=== PATIENT | female | born 1955 | race African-American/Black ===

== ENCOUNTER 2023-01-19 10:09 | Inpatient (IN) | payer OTHER ==
[2023-01-19 11:43] VITALS: BMI 16.7
[2023-01-19] MEDS ORDERED: BUPRENORPHINE HCL 150 MCG, BUPRENORPHINE HCL 75 MCG BC PRN (12:27)
[2023-01-19] MEDS ORDERED: cloNIDine HCL 0.1 MG TABLET PO ONE (12:27)
[2023-01-19] MEDS ORDERED: BUPRENORPHINE HCL 150 MCG, BUPRENORPHINE HCL 75 MCG BC ONE (12:27)
[2023-01-19] MEDS ORDERED: BUPRENORPHINE HCL 150 MCG FILM BC ONE (12:33)
[2023-01-19] MEDS ORDERED: cloNIDine HCL 0.1 MG TABLET ONE (12:33)
[2023-01-19] MEDS ORDERED: BUPRENORPHINE HCL 75 MCG FILM BC ONE (12:33)
[2023-01-19] MEDS ORDERED: ONDANSETRON *ODT* 4 MG TABLET ONE (12:39)
[2023-01-19] MEDS ORDERED: ONDANSETRON *ODT* 4 MG TABLET SL PRN (14:31)
[2023-01-19] MEDS ORDERED: guaiFENesin 600 MG TABLET.ER (FP) PO PRN (14:31)
[2023-01-19] MEDS ORDERED: DICYCLOMINE HCL 10 MG CAPSULE PO PRN (14:31)
[2023-01-19] MEDS ORDERED: NALOXONE HCL (KLOXXADO) 8 MG SPRAY NS PRN (14:31)
[2023-01-19] MEDS ORDERED: POLYETHYLENE GLYCOL (HEALTHYLAX) 3350 17 GM PACKET PO PRN (14:31)
[2023-01-19] MEDS ORDERED: hydrOXYzine PAMOATE 25 MG CAPSULE (FP) PO PRN (14:31)
[2023-01-19] MEDS ORDERED: BENZONATATE 200 MG CAPSULE PO PRN (14:31)
[2023-01-19] MEDS ORDERED: MAGNESIUM HYDROX 2400MG/30ML ORAL SUSPENSION 30 ML CUP PO PRN (14:31)
[2023-01-19] MEDS ORDERED: NALOXONE HCL 0.4 MG/ML VIAL IM PRN (14:31)
[2023-01-19] MEDS ORDERED: BENZOCAINE/MENTHOL (CHLORASEPTIC ) LOZENGE MM PRN (14:31)
[2023-01-19] MEDS ORDERED: LOPERAMIDE HCL 2 MG CAPSULE PO PRN (14:31)
[2023-01-19] MEDS ORDERED: MAG HYDROX/AL HYDROX/SIMETH 30 ML UNIT-DOSE CUP PO PRN (14:31)
[2023-01-19] MEDS: PRENATAL VITAMINS W/ FOLIC ACID TABLET (FP) PO SCH (15:29)
[2023-01-19] MEDS ORDERED: cloNIDine HCL 0.1 MG TABLET PO PRN (16:27)
[2023-01-19] MEDS: diazePAM 5 MG TABLET PO PRN (18:14)
[2023-01-19] MEDS: APIXABAN 5 MG TABLET PO SCH (22:45)
[2023-01-19] MEDS: MELATONIN 5 MG TABLETS PO SCH (22:45)
[2023-01-19] MEDS: THIAMINE HCL 100 MG TABLET (FP) PO SCH (22:45)
[2023-01-19] MEDS: GABAPENTIN 300 MG CAPSULE PO SCH (22:45)
[2023-01-20] MEDS ORDERED: BUPRENORPHINE HCL 150 MCG, BUPRENORPHINE HCL 75 MCG BC PRN
[2023-01-20] MEDS: MUPIROCIN 2% TOPICAL OINTMENT 22 GM TUBE TP SCH ×3 (00:26→22:53)
[2023-01-20] MEDS: diazePAM 5 MG TABLET PO PRN ×3 (00:58→19:48)
[2023-01-20] MEDS: BUPRENORPHINE HCL 150 MCG, BUPRENORPHINE HCL 75 MCG BC SCH ×2 (06:37→18:01)
[2023-01-20] MEDS: GABAPENTIN 300 MG CAPSULE PO SCH ×2 (09:45→22:52)
[2023-01-20] MEDS: PRENATAL VITAMINS W/ FOLIC ACID TABLET (FP) PO SCH (09:45)
[2023-01-20] MEDS: APIXABAN 5 MG TABLET PO SCH ×2 (09:45→22:52)
[2023-01-20] MEDS ORDERED: APIXABAN 5 MG TABLET PO SCH (10:00)
[2023-01-20] MEDS: CHOLECALCIFEROL (VIT D3) 5000 UNITS (125 MCG) CAP PO SCH (10:48)
[2023-01-20 12:56] LABS: BASO % 0.5 % (0-2.0); EOS % 0.4 % (0-4.5); HEMATOCRIT 42.6 % (32.4-45.2); HEMOGLOBIN 13.9 GM/dL (10.7-15.3); LYMPH % 21.9 % (8-40); MCH 30.4 pg (25.7-33.7); MCHC 32.6 g/dl (32.0-36.0); MEAN CELL VOLUME 93.4 fl (80-96); MEAN PLT VOLUME 8.4 fl (7.5-11.1); MONO % 9.8 % (3.8-10.2); NEUT % 67.4 % (42.8-82.8); PLATELET COUNT 363 10^3/uL (134-434); RBC 4.56 M/mm3 (3.60-5.2); RDW 15.3 % (11.6-15.6); WHITE BLOOD COUNT 6.8 K/mm3 (4.0-10.0)
[2023-01-20 12:59] LABS: POTASSIUM 3.9 mmol/L (3.5-5.1)
[2023-01-20 13:01] LABS: CALCIUM 8.8 mg/dL (8.5-10.1)
[2023-01-20 13:02] LABS: ALBUMIN 2.9 g/dl (3.4-5.0); BLOOD UREA NITROGEN 16.2 mg/dL (7-18)
[2023-01-20 13:05] LABS: CREATININE 0.7 mg/dL (0.55-1.3)
[2023-01-20 13:06] LABS: BILIRUBIN,TOTAL 0.4 mg/dL (0.2-1); TOT PROT 6.9 g/dl (6.4-8.2)
[2023-01-20] MEDS: MELATONIN 5 MG TABLETS PO SCH (22:52)
[2023-01-20] MEDS: THIAMINE HCL 100 MG TABLET (FP) PO SCH (22:52)
[2023-01-21] MEDS: diazePAM 5 MG TABLET PO PRN ×2 (03:11→11:14)
[2023-01-21] MEDS: BUPRENORPHINE HCL 450 MCG FILM BC SCH ×2 (05:51→17:24)
[2023-01-21] MEDS: ACETAMINOPHEN 325 MG TABLET (FP) PO PRN ×2 (07:15→17:26)
[2023-01-21] MEDS: PRENATAL VITAMINS W/ FOLIC ACID TABLET (FP) PO SCH (10:40)
[2023-01-21] MEDS: GABAPENTIN 300 MG CAPSULE PO SCH ×2 (10:40→22:22)
[2023-01-21] MEDS: APIXABAN 5 MG TABLET PO SCH ×2 (10:40→22:22)
[2023-01-21] MEDS: MUPIROCIN 2% TOPICAL OINTMENT 22 GM TUBE TP SCH ×2 (10:40→22:20)
[2023-01-21] MEDS: CHOLECALCIFEROL (VIT D3) 5000 UNITS (125 MCG) CAP PO SCH (13:31)
[2023-01-21] MEDS ORDERED: SULFAMETHOXAZOLE/TRIMETHOPRIM 800MG/160MG D.S. TABLET PO SCH (22:00)
[2023-01-21] MEDS ORDERED: BUPRENORPHINE HCL 75 MCG FILM BC ONE (22:00)
[2023-01-21] MEDS ORDERED: BUPRENORPHINE HCL 150 MCG FILM BC ONE (22:00)
[2023-01-21] MEDS: MELATONIN 5 MG TABLETS PO SCH (22:22)
[2023-01-21] MEDS: THIAMINE HCL 100 MG TABLET (FP) PO SCH (22:22)
[2023-01-22] MEDS: BUPRENORPHINE/NALOXONE 4 MG/1 MG FILM PACKET SL SCH ×2 (06:04→18:05)
[2023-01-22] MEDS: GABAPENTIN 300 MG CAPSULE PO SCH ×2 (10:28→22:45)
[2023-01-22] MEDS: APIXABAN 5 MG TABLET PO SCH ×2 (10:29→22:46)
[2023-01-22] MEDS: MUPIROCIN 2% TOPICAL OINTMENT 22 GM TUBE TP SCH ×2 (10:30→22:44)
[2023-01-22] MEDS: PRENATAL VITAMINS W/ FOLIC ACID TABLET (FP) PO SCH (10:32)
[2023-01-22] MEDS: CHOLECALCIFEROL (VIT D3) 5000 UNITS (125 MCG) CAP PO SCH (10:33)
[2023-01-22] MEDS: SODIUM HYPOCHLORITE 0.25%- 473 ML BULK BOTTLE TP SCH (10:38)
[2023-01-22] MEDS: ACETAMINOPHEN 325 MG TABLET (FP) PO PRN (18:05)
[2023-01-22] MEDS: THIAMINE HCL 100 MG TABLET (FP) PO SCH (22:45)
[2023-01-22] MEDS: MELATONIN 5 MG TABLETS PO SCH (22:45)
[2023-01-23] MEDS ORDERED: BUPRENORPHINE/NALOXONE 8 MG/2 MG FILM PACKET SL ONE (06:00)
[2023-01-23] MEDS: PRENATAL VITAMINS W/ FOLIC ACID TABLET (FP) PO SCH (10:51)
[2023-01-23] MEDS: GABAPENTIN 300 MG CAPSULE PO SCH ×2 (10:51→22:06)
[2023-01-23] MEDS: APIXABAN 5 MG TABLET PO SCH ×2 (10:51→22:06)
[2023-01-23] MEDS: MUPIROCIN 2% TOPICAL OINTMENT 22 GM TUBE TP SCH ×2 (10:52→22:05)
[2023-01-23] MEDS: SODIUM HYPOCHLORITE 0.25%- 473 ML BULK BOTTLE TP SCH (10:52)
[2023-01-23] MEDS: CHOLECALCIFEROL (VIT D3) 5000 UNITS (125 MCG) CAP PO SCH (10:53)
[2023-01-23] MEDS: ACETAMINOPHEN 325 MG TABLET (FP) PO PRN (22:05)
[2023-01-23] MEDS: MELATONIN 5 MG TABLETS PO SCH (22:06)
[2023-01-23] MEDS: THIAMINE HCL 100 MG TABLET (FP) PO SCH (22:06)
[2023-01-24] MEDS: APIXABAN 5 MG TABLET PO SCH ×2 (10:18→21:54)
[2023-01-24] MEDS: MUPIROCIN 2% TOPICAL OINTMENT 22 GM TUBE TP SCH ×2 (10:18→21:54)
[2023-01-24] MEDS: CHOLECALCIFEROL (VIT D3) 5000 UNITS (125 MCG) CAP PO SCH (10:18)
[2023-01-24] MEDS: PRENATAL VITAMINS W/ FOLIC ACID TABLET (FP) PO SCH (10:18)
[2023-01-24] MEDS: GABAPENTIN 300 MG CAPSULE PO SCH ×2 (10:18→21:54)
[2023-01-24] MEDS: SODIUM HYPOCHLORITE 0.25%- 473 ML BULK BOTTLE TP SCH (10:19)
[2023-01-24] MEDS: BUPRENORPHINE/NALOXONE 8 MG/2 MG FILM PACKET SL SCH (13:00)
[2023-01-24] MEDS: THIAMINE HCL 100 MG TABLET (FP) PO SCH (21:54)
[2023-01-24] MEDS: MELATONIN 5 MG TABLETS PO SCH (21:54)
[2023-01-24] MEDS: ACETAMINOPHEN 325 MG TABLET (FP) PO PRN (21:55)
[2023-01-25] MEDS: GABAPENTIN 300 MG CAPSULE PO SCH ×2 (10:45→22:57)
[2023-01-25] MEDS: APIXABAN 5 MG TABLET PO SCH ×2 (10:45→22:55)
[2023-01-25] MEDS: MUPIROCIN 2% TOPICAL OINTMENT 22 GM TUBE TP SCH ×2 (10:45→22:54)
[2023-01-25] MEDS: SODIUM HYPOCHLORITE 0.25%- 473 ML BULK BOTTLE TP SCH (10:45)
[2023-01-25] MEDS: PRENATAL VITAMINS W/ FOLIC ACID TABLET (FP) PO SCH (10:46)
[2023-01-25] MEDS: BUPRENORPHINE/NALOXONE 8 MG/2 MG FILM PACKET SL SCH (10:46)
[2023-01-25] MEDS: CHOLECALCIFEROL (VIT D3) 5000 UNITS (125 MCG) CAP PO SCH (10:47)
[2023-01-25 14:42] VITALS: RESP 16
[2023-01-25 17:02] VITALS: BP 136/77; TEMP 98
[2023-01-25 19:37] VITALS: PULSE 88
[2023-01-25] MEDS: ACETAMINOPHEN 325 MG TABLET (FP) PO PRN (19:39)
[2023-01-25] MEDS: MELATONIN 5 MG TABLETS PO SCH (22:56)
[2023-01-25] MEDS: THIAMINE HCL 100 MG TABLET (FP) PO SCH (22:57)
== END 2023-01-25 23:33 | disposition short-term general hospital (02) | DRG 897 ==
LOC: YASAS 10:09 → Y3N 13:07
PROVIDERS: ADMIT Allergy & Immunology; ATTEND Surgery
PROC: HZ2ZZZZ Detoxification Services for Substance Abuse Treatment (ICD-10-PCS; principal; 2023-01-19)
DX: F11.23 Opioid dependence with withdrawal (principal); F14.20 Cocaine dependence, uncomplicated; F19.282 Other psychoactive substance dependence with psychoactive substance-induced sleep disorder; F17.210 Nicotine dependence, cigarettes, uncomplicated; F19.24 Other psychoactive substance dependence with psychoactive substance-induced mood disorder; F31.9 Bipolar disorder, unspecified; I83.028 Varicose veins of left lower extremity with ulcer other part of lower leg; A49.02 Methicillin resistant Staphylococcus aureus infection, unspecified site; Z62.810 Personal history of physical and sexual abuse in childhood; Z28.310 Unvaccinated for COVID-19; Z28.9 Immunization not carried out for unspecified reason; Z99.89 Dependence on other enabling machines and devices; Z88.2 Allergy status to sulfonamides
CPT/HCPCS: 36415; 80053; 85025; 86780; 87070; 87077; 87186; 87205; 87635; 93005; 93010

== ENCOUNTER 2023-01-28 15:56 | Inpatient (IN) | payer OTHER ==
[2023-01-28 17:25] VITALS: RESP 18; BMI 16.7
[2023-01-28] MEDS ORDERED: MAG HYDROX/AL HYDROX/SIMETH 30 ML UNIT-DOSE CUP PO PRN (19:43)
[2023-01-28] MEDS ORDERED: BENZONATATE 200 MG CAPSULE PO PRN (19:43)
[2023-01-28] MEDS ORDERED: guaiFENesin 600 MG TABLET.ER (FP) PO PRN (19:43)
[2023-01-28] MEDS ORDERED: IBUPROFEN 400 MG TABLET (FP) PO PRN (19:43)
[2023-01-28] MEDS ORDERED: IBUPROFEN 600 MG TABLET (FP) PO PRN (19:43)
[2023-01-28] MEDS ORDERED: BENZOCAINE/MENTHOL (CHLORASEPTIC ) LOZENGE MM PRN (19:43)
[2023-01-28] MEDS ORDERED: NALOXONE HCL (KLOXXADO) 8 MG SPRAY NS PRN (19:43)
[2023-01-28] MEDS ORDERED: LOPERAMIDE HCL 2 MG CAPSULE PO PRN (19:43)
[2023-01-28] MEDS ORDERED: COLLOIDAL OATMEAL 1 BAR EACH TP PRN (19:43)
[2023-01-28] MEDS ORDERED: hydrOXYzine PAMOATE 25 MG CAPSULE (FP) PO PRN (19:43)
[2023-01-28] MEDS ORDERED: MAGNESIUM HYDROX 2400MG/30ML ORAL SUSPENSION 30 ML CUP PO PRN (19:43)
[2023-01-28] MEDS ORDERED: POLYETHYLENE GLYCOL (HEALTHYLAX) 3350 17 GM PACKET PO PRN (19:43)
[2023-01-28] MEDS ORDERED: NALOXONE HCL 0.4 MG/ML VIAL IM PRN (19:43)
[2023-01-28] MEDS ORDERED: ACETAMINOPHEN 325 MG TABLET (FP) PO PRN (19:43)
[2023-01-28] MEDS ORDERED: OSELTAMIVIR PHOSPHATE 75 MG CAPSULE PO SCH (22:00)
[2023-01-28] MEDS ORDERED: THIAMINE HCL 100 MG TABLET (FP) PO SCH (22:00)
[2023-01-28] MEDS ORDERED: MELATONIN 5 MG TABLETS PO SCH (22:00)
[2023-01-28] MEDS: APIXABAN 5 MG TABLET PO SCH (23:33)
[2023-01-28] MEDS: GABAPENTIN 300 MG CAPSULE PO SCH (23:34)
[2023-01-28] MEDS: BUPRENORPHINE/NALOXONE 8 MG/2 MG FILM PACKET SL SCH (23:43)
[2023-01-29] MEDS ORDERED: OSELTAMIVIR PHOSPHATE 30 MG CAPSULE PO SCH (01:45)
[2023-01-29] MEDS: BUPRENORPHINE/NALOXONE 8 MG/2 MG FILM PACKET SL SCH ×2 (01:51→10:03)
[2023-01-29 06:16] VITALS: BP 96/65; PULSE 75; TEMP 97.6
[2023-01-29] MEDS ORDERED: PRENATAL VITAMINS W/ FOLIC ACID TABLET (FP) PO SCH (10:00)
[2023-01-29] MEDS ORDERED: [UNRECOGNIZED DRUG - REMARK] TP SCH (10:00)
[2023-01-29] MEDS: GABAPENTIN 300 MG CAPSULE PO SCH (10:03)
[2023-01-29] MEDS: APIXABAN 5 MG TABLET PO SCH (10:03)
[2023-01-29 10:04] LABS: HEMATOCRIT 35.5 % (32.4-45.2); HEMOGLOBIN 11.6 GM/dL (10.7-15.3); MCH 30.7 pg (25.7-33.7); MCHC 32.6 g/dl (32.0-36.0); MEAN CELL VOLUME 94.3 fl (80-96); MEAN PLT VOLUME 8.4 fl (7.5-11.1); PLATELET COUNT 249 10^3/uL (134-434); POTASSIUM 4.4 mmol/L (3.5-5.1); RBC 3.77 M/mm3 (3.60-5.2); RDW 15.2 % (11.6-15.6); WHITE BLOOD COUNT 2.9 K/mm3 (4.0-10.0)
[2023-01-29 10:08] LABS: CALCIUM 8.6 mg/dL (8.5-10.1)
[2023-01-29 10:09] LABS: ALBUMIN 2.8 g/dl (3.4-5.0); BLOOD UREA NITROGEN 23.1 mg/dL (7-18)
[2023-01-29 10:12] LABS: CREATININE 0.5 mg/dL (0.55-1.3)
[2023-01-29 10:13] LABS: BILIRUBIN,TOTAL 0.2 mg/dL (0.2-1)
[2023-01-29 10:14] LABS: TOT PROT 6.2 g/dl (6.4-8.2)
== END 2023-01-29 13:27 | disposition short-term general hospital (02) | DRG 895 ==
LOC: YASAS 15:56 → Y5N 22:33
PROVIDERS: ADMIT Psychiatry & Neurology Pain Medicine; ATTEND Psychiatry & Neurology Pain Medicine
PROC: HZ42ZZZ Group Counseling for Substance Abuse Treatment, Cognitive-Behavioral (ICD-10-PCS; principal; 2023-01-28)
DX: F11.20 Opioid dependence, uncomplicated (principal); F14.10 Cocaine abuse, uncomplicated; F17.210 Nicotine dependence, cigarettes, uncomplicated; F31.9 Bipolar disorder, unspecified; J10.1 Influenza due to other identified influenza virus with other respiratory manifestations; I83.019 Varicose veins of right lower extremity with ulcer of unspecified site; I83.029 Varicose veins of left lower extremity with ulcer of unspecified site; Z86.718 Personal history of other venous thrombosis and embolism; Z79.01 Long term (current) use of anticoagulants; Z88.2 Allergy status to sulfonamides
CPT/HCPCS: 0241U-QW; 36415; 80048; 80053; 81003; 81240; 81241; 85025; 85027; 85300; 85610; 85651; 85730; 86140; 86803; 87040; 87522; 87635; 93005; 93010; 93970-TC; 99285-25; G0378

== ENCOUNTER 2023-02-02 17:21 | Inpatient (IN) | payer OTHER ==
[2023-02-02 18:12] VITALS: BMI 18.1
[2023-02-02] MEDS ORDERED: ACETAMINOPHEN 325 MG TABLET (FP) PO PRN (20:08)
[2023-02-02] MEDS ORDERED: POLYETHYLENE GLYCOL (HEALTHYLAX) 3350 17 GM PACKET PO PRN (20:08)
[2023-02-02] MEDS ORDERED: IBUPROFEN 400 MG TABLET (FP) PO PRN (20:08)
[2023-02-02] MEDS ORDERED: guaiFENesin 600 MG TABLET.ER (FP) PO PRN (20:08)
[2023-02-02] MEDS ORDERED: BENZOCAINE/MENTHOL (CHLORASEPTIC ) LOZENGE MM PRN (20:08)
[2023-02-02] MEDS ORDERED: COLLOIDAL OATMEAL 1 BAR EACH TP PRN (20:08)
[2023-02-02] MEDS ORDERED: hydrOXYzine PAMOATE 25 MG CAPSULE (FP) PO PRN (20:08)
[2023-02-02] MEDS ORDERED: BENZONATATE 200 MG CAPSULE PO PRN (20:08)
[2023-02-02] MEDS ORDERED: NALOXONE HCL (KLOXXADO) 8 MG SPRAY NS PRN (20:08)
[2023-02-02] MEDS ORDERED: IBUPROFEN 600 MG TABLET (FP) PO PRN (20:08)
[2023-02-02] MEDS ORDERED: MAG HYDROX/AL HYDROX/SIMETH 30 ML UNIT-DOSE CUP PO PRN (20:08)
[2023-02-02] MEDS ORDERED: LOPERAMIDE HCL 2 MG CAPSULE PO PRN (20:08)
[2023-02-02] MEDS ORDERED: NALOXONE HCL 0.4 MG/ML VIAL IM PRN (20:08)
[2023-02-02] MEDS: MELATONIN 5 MG TABLETS PO SCH (23:38)
[2023-02-02] MEDS: THIAMINE HCL 100 MG TABLET (FP) PO SCH (23:39)
[2023-02-03] MEDS: PRENATAL VITAMINS W/ FOLIC ACID TABLET (FP) PO SCH (10:25)
[2023-02-03] MEDS: APIXABAN 5 MG TABLET PO SCH ×2 (10:25→21:28)
[2023-02-03] MEDS: BUPRENORPHINE/NALOXONE 8 MG/2 MG FILM PACKET SL SCH ×2 (10:26→21:28)
[2023-02-03 10:54] LABS: HEMATOCRIT 32.3 % (32.4-45.2); HEMOGLOBIN 10.7 GM/dL (10.7-15.3); MCH 31.4 pg (25.7-33.7); MCHC 33.2 g/dl (32.0-36.0); MEAN CELL VOLUME 94.6 fl (80-96); MEAN PLT VOLUME 8.6 fl (7.5-11.1); PLATELET COUNT 260 10^3/uL (134-434); RBC 3.41 M/mm3 (3.60-5.2); RDW 14.9 % (11.6-15.6)
[2023-02-03 11:35] LABS: SYPHILIS W/ RPR CONF NON-REACTIVE (NONREACTIVE)
[2023-02-03 11:48] LABS: CHLORIDE 102 mmol/L (98-107); POTASSIUM 4.2 mmol/L (3.5-5.1); SODIUM 140 mmol/L (136-145)
[2023-02-03 11:54] LABS: CALCIUM 9.2 mg/dL (8.5-10.1)
[2023-02-03 11:56] LABS: ALBUMIN 2.8 g/dl (3.4-5.0); ANION GAP 4 mmol/L (4-13); BLOOD UREA NITROGEN 19.7 mg/dL (7-18); CO2 35 mmol/L (21-32); GLUCOSE,RANDOM 109 mg/dL (74-106)
[2023-02-03 11:57] LABS: CREATININE 0.5 mg/dL (0.55-1.3); SGPT/ALT 22 U/L (13-61)
[2023-02-03 11:59] LABS: ALK PHOS 78 U/L (45-117); BILIRUBIN,TOTAL 0.2 mg/dL (0.2-1); SGOT/AST 18 U/L (15-37); TOT PROT 6.5 g/dl (6.4-8.2)
[2023-02-03] MEDS: AMOX TR/POT CLAV 500MG/125MG TABLETS (FP) PO SCH (17:40)
[2023-02-03] MEDS: THIAMINE HCL 100 MG TABLET (FP) PO SCH (21:28)
[2023-02-03] MEDS: MELATONIN 5 MG TABLETS PO SCH (21:28)
[2023-02-04] MEDS: AMOX TR/POT CLAV 500MG/125MG TABLETS (FP) PO SCH ×2 (07:00→17:24)
[2023-02-04] MEDS: BUPRENORPHINE/NALOXONE 8 MG/2 MG FILM PACKET SL SCH ×2 (09:51→21:29)
[2023-02-04] MEDS: APIXABAN 5 MG TABLET PO SCH ×2 (09:51→21:17)
[2023-02-04] MEDS: PRENATAL VITAMINS W/ FOLIC ACID TABLET (FP) PO SCH (09:52)
[2023-02-04 11:55] LABS: PH,URINE 7.5 (5.0-8.0); URINE APPEARANCE CLEAR; URINE BILIRUBIN NEGATIVE (NEGATIVE); URINE COLOR YELLOW; URINE GLUCOSE (UA) NEGATIVE (NEGATIVE); URINE KETONE NEGATIVE (NEGATIVE); URINE LEUK ESTERASE NEGATIVE (NEGATIVE); URINE NITRITE NEGATIVE (NEGATIVE); URINE PROTEIN NEGATIVE (NEGATIVE)
[2023-02-04] MEDS: THIAMINE HCL 100 MG TABLET (FP) PO SCH (21:16)
[2023-02-04] MEDS: MELATONIN 5 MG TABLETS PO SCH (21:17)
[2023-02-05] MEDS: AMOX TR/POT CLAV 500MG/125MG TABLETS (FP) PO SCH ×2 (07:56→17:42)
[2023-02-05] MEDS: PRENATAL VITAMINS W/ FOLIC ACID TABLET (FP) PO SCH (09:42)
[2023-02-05] MEDS: APIXABAN 5 MG TABLET PO SCH ×2 (09:42→21:49)
[2023-02-05] MEDS: BUPRENORPHINE/NALOXONE 8 MG/2 MG FILM PACKET SL SCH ×2 (09:43→21:48)
[2023-02-05] MEDS: [UNRECOGNIZED DRUG - REMARK] TP SCH ×2 (13:03→13:04)
[2023-02-05] MEDS: GAUZE BANDAGE TP SCH (13:04)
[2023-02-05] MEDS: THIAMINE HCL 100 MG TABLET (FP) PO SCH (21:48)
[2023-02-05] MEDS: MELATONIN 5 MG TABLETS PO SCH (21:49)
[2023-02-06] MEDS: AMOX TR/POT CLAV 500MG/125MG TABLETS (FP) PO SCH ×2 (08:34→19:28)
[2023-02-06] MEDS: PRENATAL VITAMINS W/ FOLIC ACID TABLET (FP) PO SCH (10:19)
[2023-02-06] MEDS: APIXABAN 5 MG TABLET PO SCH ×2 (10:20→21:56)
[2023-02-06] MEDS: BUPRENORPHINE/NALOXONE 8 MG/2 MG FILM PACKET SL SCH ×2 (10:20→21:57)
[2023-02-06] MEDS: ACETAMINOPHEN 325 MG TABLET (FP) PO PRN (14:38)
[2023-02-06] MEDS: THIAMINE HCL 100 MG TABLET (FP) PO SCH (21:56)
[2023-02-06] MEDS: MELATONIN 5 MG TABLETS PO SCH (21:56)
[2023-02-07] MEDS: AMOX TR/POT CLAV 500MG/125MG TABLETS (FP) PO SCH ×2 (08:00→17:00)
[2023-02-07] MEDS: ACETAMINOPHEN 325 MG TABLET (FP) PO PRN (09:59)
[2023-02-07] MEDS: PRENATAL VITAMINS W/ FOLIC ACID TABLET (FP) PO SCH (09:59)
[2023-02-07] MEDS: APIXABAN 5 MG TABLET PO SCH ×2 (09:59→21:28)
[2023-02-07] MEDS: BUPRENORPHINE/NALOXONE 8 MG/2 MG FILM PACKET SL SCH ×2 (09:59→21:28)
[2023-02-07] MEDS: THIAMINE HCL 100 MG TABLET (FP) PO SCH (21:28)
[2023-02-07] MEDS: MELATONIN 5 MG TABLETS PO SCH (21:28)
[2023-02-08] MEDS: AMOX TR/POT CLAV 500MG/125MG TABLETS (FP) PO SCH (08:12)
[2023-02-08] MEDS: PRENATAL VITAMINS W/ FOLIC ACID TABLET (FP) PO SCH (09:53)
[2023-02-08] MEDS: APIXABAN 5 MG TABLET PO SCH ×2 (09:54→21:36)
[2023-02-08] MEDS: BUPRENORPHINE/NALOXONE 8 MG/2 MG FILM PACKET SL SCH ×2 (09:54→21:36)
[2023-02-08] MEDS: MELATONIN 5 MG TABLETS PO SCH (21:36)
[2023-02-08] MEDS: THIAMINE HCL 100 MG TABLET (FP) PO SCH (21:36)
[2023-02-09] MEDS: PRENATAL VITAMINS W/ FOLIC ACID TABLET (FP) PO SCH (09:40)
[2023-02-09] MEDS: APIXABAN 5 MG TABLET PO SCH ×2 (09:40→21:24)
[2023-02-09] MEDS: BUPRENORPHINE/NALOXONE 8 MG/2 MG FILM PACKET SL SCH ×2 (09:40→21:24)
[2023-02-09] MEDS: ACETAMINOPHEN 325 MG TABLET (FP) PO PRN (09:41)
[2023-02-09] MEDS: MELATONIN 5 MG TABLETS PO SCH (21:24)
[2023-02-09] MEDS: THIAMINE HCL 100 MG TABLET (FP) PO SCH (21:24)
[2023-02-10] MEDS: PRENATAL VITAMINS W/ FOLIC ACID TABLET (FP) PO SCH (09:53)
[2023-02-10] MEDS: APIXABAN 5 MG TABLET PO SCH ×2 (09:54→21:35)
[2023-02-10] MEDS: ACETAMINOPHEN 325 MG TABLET (FP) PO PRN (09:54)
[2023-02-10] MEDS: THIAMINE HCL 100 MG TABLET (FP) PO SCH (21:35)
[2023-02-10] MEDS: MELATONIN 5 MG TABLETS PO SCH (21:35)
[2023-02-10] MEDS: BUPRENORPHINE/NALOXONE 8 MG/2 MG FILM PACKET SL SCH (21:35)
[2023-02-11] MEDS: PRENATAL VITAMINS W/ FOLIC ACID TABLET (FP) PO SCH (09:48)
[2023-02-11] MEDS: BUPRENORPHINE/NALOXONE 8 MG/2 MG FILM PACKET SL SCH ×2 (09:48→21:29)
[2023-02-11] MEDS: APIXABAN 5 MG TABLET PO SCH ×2 (09:48→21:29)
[2023-02-11] MEDS: ACETAMINOPHEN 325 MG TABLET (FP) PO PRN (09:49)
[2023-02-11] MEDS: MELATONIN 5 MG TABLETS PO SCH (21:27)
[2023-02-11] MEDS: THIAMINE HCL 100 MG TABLET (FP) PO SCH (21:29)
[2023-02-12] MEDS: PRENATAL VITAMINS W/ FOLIC ACID TABLET (FP) PO SCH (10:01)
[2023-02-12] MEDS: ACETAMINOPHEN 325 MG TABLET (FP) PO PRN (10:01)
[2023-02-12] MEDS: BUPRENORPHINE/NALOXONE 8 MG/2 MG FILM PACKET SL SCH ×2 (10:02→21:21)
[2023-02-12] MEDS: APIXABAN 5 MG TABLET PO SCH ×2 (12:00→21:18)
[2023-02-12] MEDS ORDERED: AMMONIUM LACTATE 12% LOTION 225 GM BOTTLE TP PRN (12:01)
[2023-02-12] MEDS: MELATONIN 5 MG TABLETS PO SCH (21:18)
[2023-02-12] MEDS: THIAMINE HCL 100 MG TABLET (FP) PO SCH (21:19)
[2023-02-13] MEDS: APIXABAN 5 MG TABLET PO SCH ×2 (10:14→21:31)
[2023-02-13] MEDS: PRENATAL VITAMINS W/ FOLIC ACID TABLET (FP) PO SCH (10:14)
[2023-02-13] MEDS: BUPRENORPHINE/NALOXONE 8 MG/2 MG FILM PACKET SL SCH ×2 (10:14→21:31)
[2023-02-13] MEDS: MAGNESIUM HYDROX 2400MG/30ML ORAL SUSPENSION 30 ML CUP PO PRN ×2 (10:18→11:34)
[2023-02-13] MEDS: THIAMINE HCL 100 MG TABLET (FP) PO SCH (21:30)
[2023-02-13] MEDS: MELATONIN 5 MG TABLETS PO SCH (21:30)
[2023-02-14] MEDS: PRENATAL VITAMINS W/ FOLIC ACID TABLET (FP) PO SCH (09:58)
[2023-02-14] MEDS: ACETAMINOPHEN 325 MG TABLET (FP) PO PRN (09:58)
[2023-02-14] MEDS: APIXABAN 5 MG TABLET PO SCH ×2 (09:58→22:12)
[2023-02-14] MEDS: BUPRENORPHINE/NALOXONE 8 MG/2 MG FILM PACKET SL SCH (09:59)
[2023-02-14] MEDS: MAGNESIUM HYDROX 2400MG/30ML ORAL SUSPENSION 30 ML CUP PO PRN (10:37)
[2023-02-14] MEDS: INSULIN ASPART SLIDING SCALE (NOVOLOG) 1 VIAL SQ SCH (16:36)
[2023-02-14] MEDS: MELATONIN 5 MG TABLETS PO SCH (22:13)
[2023-02-14] MEDS: THIAMINE HCL 100 MG TABLET (FP) PO SCH (22:13)
[2023-02-15] MEDS: INSULIN ASPART SLIDING SCALE (NOVOLOG) 1 VIAL SQ SCH ×2 (06:54→16:55)
[2023-02-15] MEDS: APIXABAN 5 MG TABLET PO SCH ×2 (09:52→21:22)
[2023-02-15] MEDS: DOCUSATE SODIUM 100 MG CAPSULE (FP) PO PRN (09:52)
[2023-02-15] MEDS: PRENATAL VITAMINS W/ FOLIC ACID TABLET (FP) PO SCH (09:52)
[2023-02-15] MEDS: ACETAMINOPHEN 325 MG TABLET (FP) PO PRN ×2 (09:53→21:23)
[2023-02-15] MEDS: MAGNESIUM HYDROX 2400MG/30ML ORAL SUSPENSION 30 ML CUP PO PRN (09:55)
[2023-02-15] MEDS: BUPRENORPHINE/NALOXONE 4 MG/1 MG FILM PACKET SL SCH ×2 (09:58→21:21)
[2023-02-15] MEDS: THIAMINE HCL 100 MG TABLET (FP) PO SCH (21:22)
[2023-02-15] MEDS: MELATONIN 5 MG TABLETS PO SCH (21:22)
[2023-02-16] MEDS: INSULIN ASPART SLIDING SCALE (NOVOLOG) 1 VIAL SQ SCH (06:38)
[2023-02-16] MEDS: DOCUSATE SODIUM 100 MG CAPSULE (FP) PO PRN (09:45)
[2023-02-16] MEDS: PRENATAL VITAMINS W/ FOLIC ACID TABLET (FP) PO SCH ×2 (09:45→09:49)
[2023-02-16] MEDS: APIXABAN 5 MG TABLET PO SCH ×2 (09:46→21:41)
[2023-02-16] MEDS: BUPRENORPHINE/NALOXONE 4 MG/1 MG FILM PACKET SL SCH (09:46)
[2023-02-16] MEDS: MAGNESIUM HYDROX 2400MG/30ML ORAL SUSPENSION 30 ML CUP PO PRN (09:47)
[2023-02-16] MEDS: MELATONIN 5 MG TABLETS PO SCH (21:41)
[2023-02-16] MEDS: THIAMINE HCL 100 MG TABLET (FP) PO SCH (21:41)
[2023-02-17] MEDS: APIXABAN 5 MG TABLET PO SCH ×2 (09:38→21:17)
[2023-02-17] MEDS: PRENATAL VITAMINS W/ FOLIC ACID TABLET (FP) PO SCH ×2 (09:38→09:43)
[2023-02-17] MEDS: DOCUSATE SODIUM 100 MG CAPSULE (FP) PO PRN ×2 (09:41→21:17)
[2023-02-17] MEDS: MAGNESIUM HYDROX 2400MG/30ML ORAL SUSPENSION 30 ML CUP PO PRN (09:42)
[2023-02-17] MEDS: MELATONIN 5 MG TABLETS PO SCH (21:18)
[2023-02-17] MEDS: THIAMINE HCL 100 MG TABLET (FP) PO SCH (21:18)
[2023-02-18] MEDS: APIXABAN 5 MG TABLET PO SCH ×2 (09:47→23:21)
[2023-02-18] MEDS: MAGNESIUM HYDROX 2400MG/30ML ORAL SUSPENSION 30 ML CUP PO PRN (09:47)
[2023-02-18] MEDS: DOCUSATE SODIUM 100 MG CAPSULE (FP) PO PRN (09:47)
[2023-02-18] MEDS: PRENATAL VITAMINS W/ FOLIC ACID TABLET (FP) PO SCH (09:48)
[2023-02-18] MEDS: THIAMINE HCL 100 MG TABLET (FP) PO SCH (21:57)
[2023-02-18] MEDS: MELATONIN 5 MG TABLETS PO SCH (21:57)
[2023-02-19] MEDS: APIXABAN 5 MG TABLET PO SCH ×2 (09:43→21:14)
[2023-02-19] MEDS: PRENATAL VITAMINS W/ FOLIC ACID TABLET (FP) PO SCH (09:43)
[2023-02-19] MEDS: DOCUSATE SODIUM 100 MG CAPSULE (FP) PO PRN ×2 (09:44→21:14)
[2023-02-19] MEDS: THIAMINE HCL 100 MG TABLET (FP) PO SCH (21:14)
[2023-02-19] MEDS: MELATONIN 5 MG TABLETS PO SCH (21:14)
[2023-02-20 07:26] VITALS: BP 106/68; PULSE 80; RESP 18; TEMP 97.6
[2023-02-20] MEDS: PRENATAL VITAMINS W/ FOLIC ACID TABLET (FP) PO SCH (09:53)
[2023-02-20] MEDS: DOCUSATE SODIUM 100 MG CAPSULE (FP) PO PRN (09:54)
[2023-02-20] MEDS: APIXABAN 5 MG TABLET PO SCH (09:54)
== END 2023-02-20 13:00 | disposition home or self-care (01) | DRG 895 ==
LOC: YASAS 17:21 → Y5N 02-03 01:45
PROVIDERS: ADMIT Allergy & Immunology; ATTEND Psychiatry & Neurology Pain Medicine
PROC: HZ42ZZZ Group Counseling for Substance Abuse Treatment, Cognitive-Behavioral (ICD-10-PCS; principal; 2023-02-03)
DX: F11.20 Opioid dependence, uncomplicated (principal); F14.20 Cocaine dependence, uncomplicated; F19.280 Other psychoactive substance dependence with psychoactive substance-induced anxiety disorder; F19.282 Other psychoactive substance dependence with psychoactive substance-induced sleep disorder; F17.210 Nicotine dependence, cigarettes, uncomplicated; F19.24 Other psychoactive substance dependence with psychoactive substance-induced mood disorder; I83.019 Varicose veins of right lower extremity with ulcer of unspecified site; J10.1 Influenza due to other identified influenza virus with other respiratory manifestations; R94.5 Abnormal results of liver function studies; Z86.718 Personal history of other venous thrombosis and embolism; Z79.01 Long term (current) use of anticoagulants; Z28.310 Unvaccinated for COVID-19; Z28.9 Immunization not carried out for unspecified reason
CPT/HCPCS: 0241U-QW; 36415; 71046-TC-FY; 80053; 80307; 81003; 83036; 83735; 84100; 85025; 85027; 86780; 86803; 87522; 87635; 93005; 93010; 97116-GP; 97161-GP; 99285-25; G0378